=== PATIENT | female | born 1985 | race Caucasian/White ===

== ENCOUNTER 2017-03-31 03:23 | Emergency (ER) | payer OTHER ==
[2017-03-31 04:23] LABS: CALCIUM 8.4 mg/dL (8.5-10.1); CARBON DIOXIDE 24.4 mmol/L (21-32); CHLORIDE SERUM 101 mmol/L (98-107); CREATININE SERUM 0.8 mg/dL (0.6-1.0); GFR1 > 60 mL/min; GLUCOSE SERUM 119 mg/dL (74-106); POTASSIUM SERUM 3.4 mmol/L (3.5-5.1); SODIUM SERUM 137 mmol/L (136-145)
[2017-03-31 04:27] LABS: ALBUMIN 3.4 g/dL (3.4-5.0); ALKALINE PHOSPHATASE 133 U/L (46-116); ALT/SGPT 50 U/L (14-59); AST/SGOT 27 U/L (15-37); BILIRUBIN TOTAL 0.5 mg/dL (0.20-1.00); TOTAL PROTEIN, SERUM 7.5 g/dL (6.4-8.2)
[2017-03-31 04:52] VITALS: BP 108/69
== END 2017-03-31 04:52 | disposition home or self-care (01) ==
LOC: ED 03:23
PROVIDERS: Emergency Medicine
DX: G40.409 Other generalized epilepsy and epileptic syndromes, not intractable, without status epilepticus (principal)
CPT/HCPCS: J1165; J2060; J3490

== ENCOUNTER 2017-06-08 09:58 | Emergency (ER) | payer OTHER ==
[~2017-06-08] VITALS: Ht 152.4 cm; Wt 71.3 kg
[2017-06-08 11:25] VITALS: BP 120/82
== END 2017-06-08 11:25 | disposition home or self-care (01) ==
LOC: ED 09:58
DX: B02.9 Zoster without complications (principal)